=== PATIENT | male | born 1950 | race Caucasian/White ===

== ENCOUNTER → 2020-05-02 | Outpatient (CLI) | payer MEDICARE | LOC: M.ULTRA 07:22 | PROVIDERS: ATTEND Internal Medicine Gastroenterology | DX: N28.1 Cyst of kidney, acquired (principal); K74.60 Unspecified cirrhosis of liver; R10.9 Unspecified abdominal pain ==

== ENCOUNTER → 2021-05-13 | Outpatient (CLI) | payer BC ==
[2021-05-13 11:37] LABS: ABSOLUTE EOSINOPHILS 0.1 thou/uL (0.0-0.7); ABSOLUTE LYMPHOCYTES 2.3 thou/uL (0.8-5.3); ABSOLUTE MONOCYTES 0.4 thou/uL (0.0-1.2); ABSOLUTE NEUTROPHILS 2.7 thou/uL (1.6-8.1); BASOPHILS 0.6 %; EOSINOPHILS 1.8 %; HEMATOCRIT 47.5 % (42.0-52.0); HEMOGLOBIN 15.9 gm/dL (14.0-18.0); LYMPHOCYTES 41.8 %; MCH 32.7 pg (26.0-34.0); MCHC 33.4 g/dL (28.0-37.0); MCV 97.8 fL (80.0-100.0); MONOCYTES 6.6 %; MPV 8.9 fl. (7.2-11.1); NUCLEATED RBCS 0 /100WBC; PLATELET COUNT* 188 thou/uL (150-400); POLYS 49.2 %; RBC 4.86 mil/uL (4.50-6.00); RDW-CV 14.6 % (10.5-14.5); WBC 5.4 thou/uL (4.0-11.0)
[2021-05-13 11:48] LABS: PROTIME 10.2 Seconds (9.20-11.50)
[2021-05-13 11:53] LABS: CALCIUM 8.6 mg/dL (8.5-10.1); CREATININE 1.1 mg/dL (0.6-1.3); POTASSIUM 4.4 mmol/L (3.5-5.1); TOTAL BILIRUBIN 0.8 mg/dL (<0.1-1.0); TOTAL PROTEIN 7.9 g/dL (6.4-8.2)
[2021-05-14 23:06] LABS: HEPATITIS B SURFACE AG Positive (Negative)
== END ==
LOC: M.ULTRA 10:19
PROVIDERS: ATTEND Internal Medicine Gastroenterology
DX: N28.1 Cyst of kidney, acquired (principal); K74.60 Unspecified cirrhosis of liver; B19.10 Unspecified viral hepatitis B without hepatic coma